=== PATIENT | male | born 1965 | race Caucasian/White ===

== ENCOUNTER 2024-05-20 19:29 | Emergency (ER) | payer OTHER ==
[~2024-05-20] VITALS: Ht 175.3 cm; Wt 136.4 kg
[2024-05-20 19:53] LABS: COVID AG,FIA SOURCE NASAL SWAB
[2024-05-20 20:15] LABS: INFLUENZA TYPE A NEGATIVE FOR TYPE A (NEGATIVE); INFLUENZA TYPE B NEGATIVE FOR TYPE B (NEGATIVE); SARS-COV2 (COVID) ANTIGEN,FIA Negative (Negative)
[2024-05-20] MEDS ORDERED: TRIA15CR49 TP (22:43)
[2024-05-20] MEDS ORDERED: ACET-2080 PO (22:43)
[2024-05-20] MEDS ORDERED: DIPH50CA37 PO (22:43)
[2024-05-20] MEDS ORDERED: IBUP-1554 PO (22:43)
[2024-05-20] MEDS ORDERED: GUAIFDM PO (22:43)
[2024-05-20 23:15] VITALS: BP 133/72; PULSE 88; RESP 16; TEMP 97.9; O2SAT 96
== END 2024-05-20 23:20 | disposition home or self-care (01) ==
LOC: EMS 19:29
DX: J20.9 Acute bronchitis, unspecified (principal); L40.9 Psoriasis, unspecified; J06.9 Acute upper respiratory infection, unspecified; Z20.822 Contact with and (suspected) exposure to COVID-19
CPT/HCPCS: 71045; 87804; 99284